=== PATIENT | male | born 1950 | race Caucasian/White ===

== ENCOUNTER 2024-02-16 12:22 | Emergency (ER) | payer MEDICARE, MEDICAID, SELFPAY ==
[2024-02-16 12:24] VITALS: PULSE 83; RESP 17; O2SAT 97; BMI 20.5
[2024-02-16 12:30] VITALS: BP 134/66; PULSE 75; RESP 18; TEMP 36.8; O2SAT 96
--- NOTE | 2024-02-16 12:30 | EKG_ITS ---
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
[2024-02-16 13:00] LABS: Basophils % (Auto) 1 % (0-2.5); Eosinophils # (Auto) 0.1 Thou/mm3 (0.0-0.5); Eosinophils % (Auto) 1 % (0-10); Hematocrit 39.5 % (41.0-53.0); Hemoglobin 13.8 g/dL (13.5-16.0); Immature Granulocytes % (Auto) 0 % (0-0); Immature Granulocytes Auto 0.01 Thou/mm3 (0.00-0.00); Lymphocytes # (Auto) 1.6 Thou/mm3 (1.0-4.8); Lymphocytes % (Auto) 32 % (10-50); Mean Corpuscular HGB Conc 34.9 g/dl (31.0-37.0); Mean Corpuscular Hemoglobin 32.5 pg (25.0-35.0); Mean Corpuscular Volume 93 fL (80-100); Monocytes # (Auto) 0.5 Thou/mm3 (0.0-0.8); Monocytes % (Auto) 10 % (0-12); Neutrophils # (Auto) 2.9 Thou/mm3 (1.8-7.7); Neutrophils % (Auto) 56 % (37-80); Nucleated Red Blood Cell % 0 /100 WBC (0); Platelet Count 170 Thou/mm3 (140-440); RDW Standard Deviation 40.6 fL (35.1-43.9); Red Blood Count 4.25 Miln/mm3 (4.50-5.90); White Blood Count 5.1 Thou/mm3 (3.8-10.6)
[2024-02-16 13:20] LABS: Alanine Aminotransferase 11 U/L (10-49); Albumin, Serum 4.1 gm/dL (3.4-4.8); Albumin/Globulin Ratio 1.6 (1.2-2.2); Alkaline Phosphatase 59 U/L (46-116); Anion Gap 11 (7-16); Aspartate Amino Transferase 12 U/L (0-34); BUN/Creatinine Ratio 17 Ratio (12-20); Bilirubin,Total 0.5 mg/dL (0.3-1.2); Blood Urea Nitrogen 12 mg/dL (9-23); Calcium 9.3 mg/dL (8.3-10.6); Calcium (Corrected) 9.3 mg/dL (8.5-10.1); Chloride 105 mMol/L (98-107); Creatinine (Component) 0.7 mg/dL (0.6-1.3); Estimated Creatinine Clearance 70.2 mL/min (>60); Globulin 2.6 gm/dL (2.3-3.5); Glucose 131 mg/dL (74-106); Osmolality,Calculated 279 (275-295); Potassium 3.4 mMol/L (3.4-5.1); Sodium 139 mMol/L (136-145); Total Protein 6.7 gm/dL (5.7-8.2); Troponin I < 0.002 ng/mL (0.0-0.045); eGFR > 60 See Note
--- NOTE | 2024-02-16 13:37 | XR_ITS ---
Examination: CT brain head without contrast. 2-D sagittal coronal reconstructions Date and time of exam:February 16, 2024 1519 hours INDICATIONS: Altered mental status today CTDI: vol (mGy):47.8 DLP: (mGycm):984 Technique: Multiple CT axial sections of the brain have been obtained, 5 mm slice thickness. Contrast has not been administered. 2-D sagittal, coronal reconstructions have been obtained Low dose protocols were performed. One or more of the following dose reduction techniques were used; automated exposure control, adjustment of the mA and/or KV according to patient size, use of iterative reconstruction technique. Findings: The patient's posterior cranial vault plate severely degrades image quality There is mild to moderate ventricular enlargement Encephalomalacia in the high left parietal lobe 26 mm Encephalomalacia in the right occipital lobe No gross hemorrhage IMPRESSION: The patient's posterior cranial vault plate severely degrades image quality Mild to moderate ventricular enlargement No gross hemorrhage or gross mass effect
--- NOTE | 2024-02-16 14:08 | PD.EDAMS ---
Altered Mental Status RME/HPI General Chief Complaint: Altered Mental Status Stated Complaint: AMS Time Seen by Provider: 02/16/24 14:04 Arrival date/time: 02/16/24 12:22 RME / HPI RME / HPI narrative: DR. JURADO MAIN ED EVALUATION: 73 year old male presents to the Emergency Department [facility] with complaint of altered mental status. History limited, no ROS from patient. Patient resides in an assisted living facility as he is developmentally delayed. Related Data Allergies Allergy/AdvReac Type Severity Reaction Status Date / Time No Known Allergies Allergy Verified 10/05/19 09:34 Review of Systems Review of Systems ROS Unobtainable: unobtainable due to mental status Past Medical History Social History SMOKING STATUS: Unknown if ever smoked ED Exam Narrative Physical exam: GENERAL APPEARANCE: awake, altered, well-developed, well-nourished, no acute distress VITALS: All vitals were reviewed and the pulse ox is 96% on room air, which is normal according to my interpretation. HEENT: Normocephalic, atraumatic; pupils equal, round, reactive to light; EOMI; mucous membranes pink, moist; oropharynx clear NECK: Supple LUNGS: CTABL; no wheezes, no rales, no rhonchi HEART: Regular rate, regular rhythm; normal S1, S2; no murmurs ABDOMEN: non distended; normal BS; soft, no tenderness, no guarding, no rebound; no masses, no organomegaly, no hernia BACK: no CVA tenderness EXTREMITIES: atraumatic; no edema NEUROLOGIC: unobtainable; PSYCHIATRIC: unobtainable SKIN: warm, dry, normal color; no rashes Course Course Course Narrative: 1800: Patient was signed out to Dr. Blanco. Past medical, surgical, social and family history reviewed. Vitals and home medications reviewed. Results and treatment plan discussed. They will assume the care of the patient at this time and will follow the patient. Quality Measures none Orders Category Date Time Status Bedside COVID-19 Antigen Test NOW Care 02/16/24 12:33 Active Bedside Influenza A&B Antigen Test NOW Care 02/16/24 12:33 Completed EKG (ED ONLY) *Do not use* NOW Care 02/16/24 12:[address] abdomen pelvis wo con Stat Exams 02/16/24 23:[address] head/brain wo con Stat Exams 02/16/24 13:37 Completed EKG (ED Only) Stat Exams 02/16/24 12:30 Draft CBC Stat Lab 02/16/24 12:44 Completed Comprehensive Metabolic Panel Stat Lab 02/16/24 12:44 Completed Troponin I Stat Lab 02/16/24 12:44 Completed Urinalysis Stat Lab 02/16/24 22:37 Completed Lidocaine Jelly 2% Urojet [Xylocaine Jelly 2% Urojet] Med 02/16/24 19:19 Discontinued See Dose Instructions TOP X1 ONE Sodium Chloride 0.9% 1000 ml [Ns] 1,000 ml Med 02/16/24 18:14 Discontinued IV 999 mls/hr Sodium Chloride 0.9% 1000 ml [Ns] 1,000 ml Med 02/16/24 22:22 Discontinued IV 999 mls/hr Vital Signs Vital signs: Vital Signs Temperature 98.2 F 02/16/24 12:30 Pulse Rate 75 02/16/24 12:30 Respiratory Rate 18 02/16/24 12:30 Blood Pressure 134/66 H 02/16/24 12:30 Pulse Oximetry (%) 96 02/16/24 12:30 Oxygen Delivery Method Room Air 02/16/24 12:30 Altered Mental Status MDM Narrative MDM Narrative:: I, Holley Coronado am scribing for and in the presence of Dr. Jurado. Patient data External records reviewed:: [facility] previous records (Reviewed last ED visit dated 09/27/19, discharged with the following: Laceration.) Clinical information provided by:: patient Social determinants that could affect healthcare access:: housing Patient has the following chronic illnesses:: Unknown. Previous visit chart: Patient resides in an assisted living facility as he is developmentally delayed. How is presenting disease/condition affected by chronic disease/condition?: uneffected by Evaluation data The following diagnostics were reviewed and interpreted by me:: lab results, radiology exam(s) and EKG tracing(s) (sinus rhythm, rate 64, no STEMI) Lab and/or radiology exams considered but not ordered:: none Interpretation Summary: Procedure(s): CT head/brain wo con Accession Number(s): [id number] cc: Jae Babb MD; NO PRIMARY/FAMILY,PHYSICIAN; Ethel Jurado MD~ Examination: CT brain head without contrast. 2-D sagittal coronal reconstructions Date and time of exam:February 16, 2024 1519 hours INDICATIONS: Altered mental status today CTDI: vol (mGy):47.8 DLP: (mGycm):984 Technique: Multiple CT axial sections of the brain have been obtained, 5 mm slice thickness. Contrast has not been administered. 2-D sagittal, coronal reconstructions have been obtained Low dose protocols were performed. One or more of the following dose reduction techniques were used; automated exposure control, adjustment of the mA and/or KV according to patient size, use of iterative reconstruction technique. Findings: The patient's posterior cranial vault plate severely degrades image quality There is mild to moderate ventricular enlargement Encephalomalacia in the high left parietal lobe 26 mm Encephalomalacia in the right occipital lobe No gross hemorrhage IMPRESSION: The patient's posterior cranial vault plate severely degrades image quality Mild to moderate ventricular enlargement No gross hemorrhage or gross mass effect Dictated By: Jae Babb MD Medications / Prescriptions Medications or Prescriptions considered but not ordered:: none Medication administrations:: Medication Administration History Discontinued Medications Sodium Chloride (Ns) 1,000 mls @ 999 mls/hr IV .Q1H1M ONE Stop: 02/16/24 19:14 Last Infusion: 02/16/24 22:57 Dose: Infused Documented By: ANA MARÍA Admin: 02/16/24 20:10 Dose: 999 mls/hr Documented By: ANA MARÍA Sodium Chloride (Ns) 1,000 mls @ 999 mls/hr IV .Q1H1M ONE Stop: 02/16/24 23:22 Last Infusion: 02/17/24 01:41 Dose: Infused Documented By: ANA MARÍA Admin: 02/16/24 22:57 Dose: 999 mls/hr Documented By: ANA MARÍA Lidocaine HCl (Lidocaine Jelly 2% (Urojet) 10 Ml Tube) 0 ml TOP X1 ONE Stop: 02/16/24 19:20 Last Admin: 02/16/24 20:07 Dose: 10 ml Documented By: ANA MARÍA see above if any Consultations Consultation(s) initiated? (list below): No Diagnosis Differential diagnosis altered mental status: altered mental status, dementia, hypoglycemia and subarachnoid hemorrhage Most likely diagnosis given after review of the tests above:: No official diagnoses at this time, still pending diagnostic tests. Patient signout to the warp tying machine knotter provider. Admission Indicated Admission indicated?: not indicated Explain why admission is indicated or not indicated:: No final disposition plan at this time, still pending diagnostic tests. Patient signout to the warp tying machine knotter provider. Admission Request Was there a request for admission?: No Disposition Plan Disposition Plan: other (specify) (Patient signout to the warp tying machine knotter provider.) Discharge Plan Prescriptions/Referrals Referrals: No Primary/Family,Physician [Primary Care Provider] - In 1 week Problem List Clinical Impression: Hematuria Patient/Caregiver Discharge Instructions Print Language: Afghan
[2024-02-16 14:27] VITALS: BP 139/94; PULSE 62; RESP 15; TEMP 36.4; O2SAT 100
--- NOTE | 2024-02-16 14:54 | PC.NURSE ---
unable to pass 14 faroese catheter to obtain urine sample.
[2024-02-16 16:20] VITALS: BP 125/91; PULSE 64; RESP 16; TEMP 36.7; O2SAT 97
--- NOTE | 2024-02-16 17:12 | PC.NURSE ---
Received report from Sherri PEDERSON and assumed care of patient.
[2024-02-16 19:37] VITALS: BP 173/90; PULSE 67; RESP 16; TEMP 36.9; O2SAT 99
[2024-02-16] MEDS: LIDOCAINE JELLY 2% (Urojet) 10 ML TUBE TOP (20:07)
[2024-02-16] MEDS: SODIUM CHLORIDE 0.9% 1000 ML 1,000 ML 999 ML IV ×2 (20:10→22:57)
--- NOTE | 2024-02-16 21:41 | EDNOTE_ITS ---
Emergency Room Addendum <Holleyearline Coronado - Last Filed: 02/16/24 22:19> Addendum Narrative: 1800: Care assumed from Dr. Jurado, the previous shift emergency physician. Past medical, surgical, social and family history reviewed. Vitals and home medications reviewed. I will assume the care of the patient at this time. Please refer to the emergency department record for history and examination from initial visit.? Physical exam by me shows patient under no acute distress at this time. <Lalitalashaun Childress - Last Filed: 02/17/24 05:34> Addendum Narrative: 1800: Care assumed from Dr. Jurado, the previous shift emergency physician. Past medical, surgical, social and family history reviewed. Vitals and home medications reviewed. I will assume the care of the patient at this time. Please refer to the emergency department record for history and examination from initial visit.? Physical exam by me shows patient under no acute distress at this time. Labs are normal. CT is unremarkable. Patient is stable to be discharged. RADIOLOGY RESULTS: Telerad Preliminary Report Draft Patient: RAEANN OCAMPO [facility]. Record#: [id number] Birthdate: 1950 Age/Sex: 73 / M Location: [facility] Attending Dr: Ordering Physician: Date of Service: Procedure(s): Accession Number(s): cc: ~ CT scan of the abdomen and pelvis without intravenous contrast (axial sections with sagittal and coronal reformats): February 17, 2024 at 0044 hours Clinical History: Hematuria rule out kidney stone. No prior study is available for comparison. Findings: The evaluation is limited due to the absence of intravenous contrast. There is a partly calcified nodule in the right middle lobe. Bibasilar dependent atelectasis is present. There is right middle lobe atelectasis. Small hypodense lesion is noted in the liver, too small to characterize. There is a 3 x 2.5 cm ill defined hypodense mass in the distal body/tail of the pancreas with mild peripancreatic fat stranding (axial image 62/259). The gallbladder, spleen, kidneys and adrenals are unremarkable on this noncontrast study No evidence of bowel dilatation. There is wall thickening of the stomach with perigastric collaterals. Moderate amount of fecal material is present in the colon. The appendix is within normal limits. There is no adenopathy. The urinary bladder wall is mildly thickened, which may represent cystitis. A small amount of free fluid is seen in the abdomen. There is no free air. The aorta and its branches demonstrate atheromatous calcification without evidence of aneurysm. There is age indeterminate anterior wedge compression deformity of L1 vertebra. Moderate degenerative changes are identified in the visualized spine. Impression: Limited evaluation as described. No evidence of renal/ureteric calculus or hydroureteronephrosis. Possible cystitis. Recommend clinical and laboratory correlation. Ill defined hypodense mass in the distal body/tail of the pancreas, the pos sibility of neoplasm cannot be excluded. Underlying pancreatitis cannot be excluded. Recommend further evaluation with intravenous contrast. Wall thickening of the stomach with perigastric collaterals, which may represent gastritis. Constipation. Other findings as described above. Report Electronically Signed By: Emmett Scott 02/17/2024 3:18:37 AM [EST]
[2024-02-16 22:44] LABS: Collection Type, Urine Clean Catch; Squamous Epithelial Cell,Urine 0 /hpf (0-5)
[2024-02-16 22:49] LABS: Bilirubin,Urine Negative (Negative); Blood,Urine 3+ (Negative); Clarity,Urine Clear (Clear/Hazy); Color,Urine Yellow (Lt Yel-Yel); Glucose, Urine Negative (Negative); Ketones,Urine 1+ (Negative); Leukocyte Esterase,Urine Negative (Negative); Nitrite,Urine Negative (Negative); Protein,Urine Trace (Neg - Trace); RBC,Urine 683 /hpf (0-3); Specific Gravity,Urine 1.026 (1.001-1.035); WBC,Urine 8 /hpf (0-5)
--- NOTE | 2024-02-16 23:25 | XR_ITS ---
Examination: CT abdomen and pelvis without contrast. Coronal 3-D reconstructions. Sagittal 2-D reconstructions. Date and time of exam:February 17, 2024 0044 hours INDICATIONS: Onset hematuria today CTDI: vol (mGy): 7.04 DLP: (mGycm): 379 Technique: Axial images of the abdomen have been obtained, 3 mm slice thickness Intravenous contrast material has not been administered. Low dose protocols were performed. One or more of the following dose reduction techniques were used; automated exposure control, adjustment of the mA and/or KV according to patient size, use of iterative reconstruction technique. Findings: No focal liver or splenic lesions Minimal fluid subcapsular to the spleen Suspicious for tiny gallstones Subtle low density in the body of the pancreas, axial image 58, measuring 25 mm No renal or ureteral calculi, no hydronephrosis Aorta normal size No bowel obstruction Normal appendix Urinary bladder wall thickening Air distended rectum Fat-containing right inguinal hernia Severe osteopenia Chronic wedging L1, significant degenerative disc disease L4-L5, L5-S1 IMPRESSION: Recommend MRI abdomen pancreas follow-up pre and postcontrast, as well as MRCP to exclude 25 mm pancreatic mass, differential would include pancreatic carcinoma
[2024-02-17 03:10] VITALS: BP 145/82; PULSE 76; RESP 18; TEMP 37.1; O2SAT 97
--- NOTE | 2024-02-17 03:19 | PRELIM_ITS ---
CT scan of the abdomen and pelvis without intravenous contrast (axial sections with sagittal and bety nal reformats): February 17, 2024 at 0044 hoursClinical History: Hematuria rule out kidney stone.No pr ior study is available for comparison.Findings:The evaluation is limited due to the absence of intrav enous contrast.There is a partly calcified nodule in the right middle lobe. Bibasilar dependent atele ctasis is present. There is right middle lobe atelectasis.Small hypodense lesion is noted in the rony er, too small to characterize. There is a 3 x 2.5 cm ill defined hypodense mass in the distal body/ta il of the pancreas with mild peripancreatic fat stranding (axial image 62/259). The gallbladder, sple en, kidneys and adrenals are unremarkable on this noncontrast studyNo evidence of bowel dilatation. T here is wall thickening of the stomach with perigastric collaterals. Moderate amount of fecal materia l is present in the colon. The appendix is within normal limits. There is no adenopathy.The urinary b ladder wall is mildly thickened, which may represent cystitis. A small amount of free fluid is seen i n the abdomen. There is no free air. The aorta and its branches demonstrate atheromatous calcificatio n without evidence of aneurysm.There is age indeterminate anterior wedge compression deformity of L1 vertebra. Moderate degenerative changes are identified in the visualized spine.Impression:Limited va luation as described.No evidence of renal/ureteric calculus or hydroureteronephrosis.Possible cystiti s. Recommend clinical and laboratory correlation.Ill defined hypodense mass in the distal body/tail o f the pancreas, the possibility of neoplasm cannot be excluded. Underlying pancreatitis cannot be exc luded. Recommend further evaluation with intravenous contrast.Wall thickening of the stomach with per igastric collaterals, which may represent gastritis.Constipation.Other findings as described above. R eport Electronically Signed By: Emmett Scott 02/17/2024 3:18:37 AM [EST]
[2024-02-17 05:43] VITALS: BP 158/92; PULSE 70; RESP 16; TEMP 36.7; O2SAT 98
== END 2024-02-17 05:44 | disposition home or self-care (01) ==
PROVIDERS: Emergency Medicine; Emergency Provider Emergency Medicine
DX: R31.9 Hematuria, unspecified (principal); G93.89 Other specified disorders of brain; K59.00 Constipation, unspecified
CPT/HCPCS: 36415; 70450; 74176; 80053; 81001; 84484; 85025; 87400; 87811; 93005; 96360; 96361; 99284; J7030

== ENCOUNTER 2024-07-11 11:43 | Inpatient (IN) | payer MEDICARE, MEDICAID, SELFPAY ==
[2024-07-11 11:52] VITALS: BP 101/60; PULSE 91; RESP 22; TEMP 38.1; O2SAT 95
--- NOTE | 2024-07-11 12:04 | PD.EDADULT ---
ED General RME/HPI General Chief complaint: Shortness of Breath/Dyspnea Stated complaint: SOB Time Seen by Provider: 07/11/24 11:54 Arrival date/time: 07/11/24 11:43 Limitations: altered mental status RME / HPI RME / HPI narrative: 73-year-old nonverbal male, with a past medical history of developmentally disabled, seizure disorder, and cerebral palsy, presents via EMS to the ED from his [place] [facility] with a complaint of shortness of breath with shallow respirations and rhonchi. Per EMS, staff indicates there has been no fever. Initially his oxygen saturation was 88% on room air. EMS initiated oxygen at 6 L via nasal cannula which brought his oxygen saturation up to 98-99%. Related Data Allergies Allergy/AdvReac Type Severity Reaction Status Date / Time No Known Allergies Allergy Verified 10/05/19 09:34 Review of Systems Review of Systems Systems Reviewed: All systems reviewed, normal except as documented Past Medical History Past Medical History NEUROLOGIC: Positive Seizures, Cerebral Palsy and Head Trauma CARDIAC: Negative Congestive Heart Failure RESPIRATORY: Negative Chronic Obstructive Pulmonary Disease (COPD) GENITOURINARY: Negative Renal Disease ENT: Positive Head Trauma ENDOCRINE: Negative Diabetes Mellitus Type 1 or Diabetes Mellitus Type 2 HEMATOLOGIC: Negative Sickle Cell Disease Social History SMOKING STATUS: Unknown if ever smoked ED Exam Narrative Physical exam: Alert, nonverbal, developmentally delayed 73-year-old male, mild acute respiratory distress noted. Diminished breath sounds at bases, rhonchi is noted to all [place]. Cardiovascular regular rate and rhythm. Extremities are contracted. General Limitations: Present altered mental status General appearance: Present in no apparent distress Head Head exam: Present atraumatic and normocephalic Eye Eye exam: Absent scleral icterus or conjunctival injection ENT ENT exam: Present other (Mucous membranes are slightly dry) Neck Neck exam: Present trachea midline; Absent lymphadenopathy Chest Chest inspection: Present normal inspection Respiratory Respiratory exam: Present respiratory distress and other (Diminished breath sounds at the bases, rhonchi noted bilaterally.); Absent normal lung sounds bilaterally or wheezes Cardiovascular Cardiovascular exam: Present regular rate and normal rhythm Abdominal Exam Abdominal exam: Present soft Course Course Course Narrative: 73-year-old nonverbal male, with a past medical history of developmentally disabled, seizure disorder, and cerebral palsy, presents via EMS to the ED from his [place] [facility] with a complaint of shortness of breath with shallow respirations and rhonchi. Per EMS, staff indicates there has been no fever. Initially his oxygen saturation was 88% on room air. EMS initiated oxygen at 6 L via nasal cannula which brought his oxygen saturation up to 98-99%. Alert, nonverbal, developmentally delayed 73-year-old male, mild acute respiratory distress noted. Diminished breath sounds at bases, rhonchi is noted to all bur[place]on. Cardiovascular regular rate and rhythm. Extremities are contracted. Labs reveal a white count of 18.4, decreased H&H of 18.8/33.8 with normal platelets, ANC is elevated at 15.4. Lactic acid is normal at 1.2 and LDH is normal at 176. Procalcitonin is normal at 0.15. Coags are essentially normal with the exception of a mildly elevated PT 13.8. Troponin is normal at less than 0.002. BNP is normal at 79. ABG is abnormal with a pH of 7.49, PCO2 of 30, PO2 of 59 on 2 L via nasal cannula. CMP abnormalities include a creatinine of 0.5, glucose 100, osmolality 272, lactic 1.2, magnesium 1.8, alk phos 189 and albumin 3.2. Otherwise normal chemistry panel. Urinalysis reveals hazy dark yellow urine with a specific gravity of 1.032 with 1+ protein, 1+ ketones, negative leukocyte esterase, negative nitrates, 8 RBC, 8 WBCs, 1 squamous epithelial and no bacteria. COVID and influenza A/B swabs are negative. Discussed request for admission with resident service who agrees to come down and check out the patient for admission. CT abdomen and pelvis with contrast ordered and pending, per request by resident for admission. Quality Measures Current suspected stage: ruled out Reason for ruling out sepsis: Lactic acid 1.2, procalcitonin 0.15 no tachycardia noted. Possible source: pulmonary Blood cultures ordered: yes Antibiotic ordered: Yes Pertinent labs: 07/11/24 12:31 Lactic Acid 1.2 mMol/L (0.4-2.0) Procalcitonin 0.15 ng/ml (0.0-0.49) sepsis Orders Category Date Time Status Bedside Influenza A&B Antigen Test NOW Care 07/11/24 12:07 Completed COVID-19 Screening Questionnaire NOW Care 07/11/24 19:[address] Screening NOW Care 07/11/24 17:[address] Screening NOW Care 07/11/24 21:[address] Screening X1 Care 07/11/24 17:34 Completed EKG (ED ONLY) *Do not use* NOW Care 07/11/24 12:10 Completed IV [Insert IV] NOW Care 07/11/24 19:[address] chest abdomen pelvis w Stat Exams 07/11/24 21:[address] head/brain wo con Stat Exams 07/11/24 21:37 Completed EKG (ED Only) Stat Exams 07/11/24 12:07 Draft XR chest 1V portable Stat Exams 07/11/24 12:13 Completed ABG [Arterial Blood Gas] Stat Lab 07/11/24 12:50 Completed B-Type Natriuretic Peptide Stat Lab 07/11/24 12:31 Completed Blood Culture (Lab) Stat Lab 07/11/24 12:27 Received CBC Stat Lab 07/11/24 12:31 Completed CMP [Comprehensive Metabolic Panel] Stat Lab 07/11/24 12:31 Completed COVID-19 Antigen (In-House) Routine Lab 07/11/24 12:32 Completed COVID-19 Antigen (In-House) Stat Lab 07/11/24 19:44 Completed LDH (Lactate Dehydrogenase) Stat Lab 07/11/24 12:31 Completed Lactic Acid [Lactate (Lactic Acid)] Stat Lab 07/11/24 12:31 Completed Magnesium Stat Lab 07/11/24 12:31 Completed Partial Thromboplastin Time Stat Lab 07/11/24 12:31 Completed Procalcitonin Stat Lab 07/11/24 12:31 Completed Prothrombin Time with INR Stat Lab 07/11/24 12:31 Completed Troponin I Stat Lab 07/11/24 12:31 Completed Urinalysis Stat Lab 07/11/24 14:40 Completed Acetaminophen Supp [Tylenol Supp] Med 07/11/24 13:36 Discontinued 650 mg IN X1 ONE Albuterol/Ipratr Rt Mariana [Duoneb Rt Mariana] Med 07/11/24 12:07 Discontinued 3 ml INH X1 ONE Vital Signs Vital signs: Vital Signs Temperature 100.5 F H 07/11/24 11:52 Pulse Rate 91 07/11/24 11:52 Respiratory Rate 22 H 07/11/24 11:52 Blood Pressure 101/60 07/11/24 11:52 Pulse Oximetry (%) 95 07/11/24 11:52 Oxygen Delivery Method Nasal Cannula 07/11/24 11:52 Oxygen Flow Rate 6 07/11/24 11:52 Discharge Plan Plan Patient Disposition: Admit Acute Care w/in Hospital Discharge Disposition comment: Stable Prescriptions/Referrals Referrals: Lizzette Antunez DO [Primary Care Provider] - In 1 week Problem List Clinical Impression: Congestive heart failure, Community acquired pneumonia, Multiple pulmonary nodules, Pancreatic mass Patient/Caregiver Discharge Instructions Print Language: Yakut Stand Alone Forms: Irene Award Info., Patient Portal Info Letter PA/BACK SEWER Supervising Physician PA/TERENCE Supervising Physician: Dr. Aliya ABAD Narrative MDM hospital course: 73-year-old nonverbal male, with a past medical history of developmentally disabled, seizure disorder, and cerebral palsy, presents via EMS to the ED from his [place] [facility] with a complaint of shortness of breath with shallow respirations and rhonchi. Per EMS, staff indicates there has been no fever. Initially his oxygen saturation was 88% on room air. EMS initiated oxygen at 6 L via nasal cannula which brought his oxygen saturation up to 98-99%. Alert, nonverbal, developmentally delayed 73-year-old male, mild acute respiratory distress noted. Diminished breath sounds at bases, rhonchi is noted to all bur[place]. Cardiovascular regular rate and rhythm. Extremities are contracted. Labs reveal a white count of 18.4, decreased H&H of 18.8/33.8 with normal platelets, ANC is elevated at 15.4. Lactic acid is normal at 1.2 and LDH is normal at 176. Procalcitonin is normal at 0.15. Coags are essentially normal with the exception of a mildly elevated PT 13.8. Troponin is normal at less than 0.002. BNP is normal at 79. ABG is abnormal with a pH of 7.49, PCO2 of 30, PO2 of 59 on 2 L via nasal cannula. CMP abnormalities include a creatinine of 0.5, glucose 100, osmolality 272, lactic 1.2, magnesium 1.8, alk phos 189 and albumin 3.2. Otherwise normal chemistry panel. Urinalysis reveals hazy dark yellow urine with a specific gravity of 1.032 with 1+ protein, 1+ ketones, negative leukocyte esterase, negative nitrates, 8 RBC, 8 WBCs, 1 squamous epithelial and no bacteria. COVID and influenza A/B swabs are negative. Discussed request for admission with resident service who agrees to come down and check out the patient for admission, however would like CT of Abd/Pelvis for further evaluation. CT Abd/Pelvis ordered at 1734, however as of 2129, CT had not been performed. After discussion with Dr. Pisano, he recommends CT Chest/Abd/Pelvis as well as CT Brain. Cancelled original CT Abd/Pelvis and reordered the CTs to include Brain, Chest, Abdomen, and Pelvis. CT Brain: Findings: The patient's posterior cranial plate massively degrades scan image quality. The ventricles are moderately enlarged. The fourth ventricle is midline. No gross hemorrhage. IMPRESSION: The patient's posterior cranial plate massively degrades image quality. The ventricles are moderately enlarged. No gross hemorrhage or gross mass effect CT Chest/Abd/Pelvis: Findings: No thoracic aortic aneurysm dilatation. No pulmonary artery emboli on this non-CTA study. Mild enlargement in cardiac contour. Moderate CHF with pulmonary vascular congestion and perihilar edema. Multiple soft bilateral pulmonary nodules ranging in size up to 10 mm. Pneumonia at the lung bases with mild right [id number] left pleural effusion. Liver nodular in contour with multiple poorly defined liver lesions. Spleen is not enlarged. Moderate ascites. Large necrotic mass involving the pancreas, AP dimension and at least 4 cm mediolateral dimension at least 6.4 cm. No hydronephrosis. Paracaval / periaortic subcentimeter lymph nodes. No bowel obstruction. Mild thickening of the urinary bladder wall with 6 mm calculus and 3 mm calculusin the bladder. 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 Orlando who agrees to see patient for admission. Clinical Information Provided by EMS Medical Records Reviewed halfway Meds/Rx Considered, not Ordered None Labs/Rad/Tests considered, not Ordered None Chronic Illness/Social Conditions which may negatively complicate care or outcome(s)-explain: Cognitively impaired, Developmentally delayed and halfway/debilitated Lab Interpretation Labs: interpreted by la Lab(s) interpretation(s): Labs reveal a white count of 18.4, decreased H&H of 18.8/33.8 with normal platelets, ANC is elevated at 15.4. Lactic acid is normal at 1.2 and LDH is normal at 176. Procalcitonin is normal at 0.15. Coags are essentially normal with the exception of a mildly elevated PT 13.8. Troponin is normal at less than 0.002. BNP is normal at 79. ABG is abnormal with a pH of 7.49, PCO2 of 30, PO2 of 59 on 2 L via nasal cannula. CMP abnormalities include a creatinine of 0.5, glucose 100, osmolality 272, lactic 1.2, magnesium 1.8, alk phos 189 and albumin 3.2. Otherwise normal chemistry panel. Urinalysis reveals hazy dark yellow urine with a specific gravity of 1.032 with 1+ protein, 1+ ketones, negative leukocyte esterase, negative nitrates, 8 RBC, 8 WBCs, 1 squamous epithelial and no bacteria. COVID and influenza A/B swabs are negative. Imaging Radiology reports / interpretation(s): CT Brain: Findings: The patient's posterior cranial plate massively degrades scan image quality. The ventricles are moderately enlarged. The fourth ventricle is midline. No gross hemorrhage. IMPRESSION: The patient's posterior cranial plate massively degrades image quality. The ventricles are moderately enlarged. No gross hemorrhage or gross mass effect CT Chest/Abd/Pelvis: Findings: No thoracic aortic aneurysm dilatation. No pulmonary artery emboli on this non-CTA study. Mild enlargement in cardiac contour. Moderate CHF with pulmonary vascular congestion and perihilar edema. Multiple soft bilateral pulmonary nodules ranging in size up to 10 mm. Pneumonia at the lung bases with mild right upgi-ow-[id number] left pleural effusion. Liver nodular in contour with multiple poorly defined liver lesions. Spleen is not enlarged. Moderate ascites. Large necrotic mass involving the pancreas, AP dimension and at least 4 cm mediolateral dimension at least 6.4 cm. No hydronephrosis. Paracaval / periaortic subcentimeter lymph nodes. No bowel obstruction. Mild thickening of the urinary bladder wall with 6 mm calculus and 3 mm calculusin the bladder. 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 Medication Administration(s) Medication Administration History Discontinued Medications Acetaminophen (Acetaminophen Supp 650 Mg Supp) 650 mg IN X1 ONE Stop: 07/11/24 13:37 Last Admin: 07/11/24 14:39 Dose: Not Given Documented By: SURESH Non-Admin Reason: Cancelled by Provider Albuterol/Ipratropium (Albuterol/Ipratropium (Duoneb) Rt Mariana 3 Ml Nebu) 3 ml INH X1 ONE Stop: 07/11/24 12:08 Last Admin: 07/11/24 12:51 Dose: 3 ml Documented By: DAVID Duoneb, Tylenol 650mg IN, Rocephin 1Gm IV, Zithromax 500mg IV Diagnosis Differential diagnosis: Pneumonia, CHF, Sepsis, Pyelonephritis, Most likely dx, and/or detailed dx discussion: CHF, Pneumonia, Pancreatic Mass, Pulmonary Nodules Dispositon Disposition: Admit (Discussed with resident service for admission. Agrees to take a look at the patient. Wants CT abdomen pelvis.)
--- NOTE | 2024-07-11 12:07 | EKG_ITS ---
[facility] Test Date: 2024-07-11 Pat Name: RAEANN OCAMPO Department: Room: - Gender: Male Office Admin: : [id number] Requested By: Keyla May Order Number: [id number] Reading MD: Keyla May Measurements Intervals [place] Rate: 87 P: 39 AR: 154 QRS: 22 QRSD: 70 T: 90 QT: 362 QTc: 436 Interpretive Statements SINUS RHYTHM POSSIBLE LEFT ATRIAL ENLARGEMENT [-0.1mV P-WAVE IN V1/V2] SEPTAL MYOCARDIAL INFARCTION , PROBABLY RECENT [40+ ms Q WAVE IN V1/V2] ACUTE RI Compared to ECG 02/16/2024 13:06:47 Myocardial infarct finding now present /store/S0/[id number].pdf
--- NOTE | 2024-07-11 12:13 | XR_ITS ---
Examination: AP chest single view Technique one AP portable upright chest single view Date and time: July 11, 2024 1220 hours INDICATIONS: Shortness of breath today. FINDINGS: Mild prominence left ventricle Opacity in both lungs with vascular congestion IMPRESSION: Ekut-ml-[id number] heart failure Consider superimposed bilateral pneumonia, clinical correlation advised
[2024-07-11 12:38] LABS: Lactate (Lactic Acid) 1.2 mMol/L (0.4-2.0)
[2024-07-11 12:40] LABS: Basophils # (Auto) 0.1 Thou/mm3 (0.0-0.2); Basophils % (Auto) 0 % (0-2.5); Eosinophils # (Auto) 0.1 Thou/mm3 (0.0-0.5); Eosinophils % (Auto) 0 % (0-10); Hematocrit 33.8 % (41.0-53.0); Hemoglobin 11.8 g/dL (13.5-16.0); Immature Granulocytes % (Auto) 0 % (0-0); Immature Granulocytes Auto 0.08 Thou/mm3 (0.00-0.00); Lymphocytes # (Auto) 0.8 Thou/mm3 (1.0-4.8); Lymphocytes % (Auto) 5 % (10-50); Mean Corpuscular HGB Conc 34.9 g/dl (31.0-37.0); Mean Corpuscular Hemoglobin 31.7 pg (25.0-35.0); Mean Corpuscular Volume 91 fL (80-100); Monocytes % (Auto) 11 % (0-12); Neutrophils # (Auto) 15.4 Thou/mm3 (1.8-7.7); Neutrophils % (Auto) 84 % (37-80); Nucleated Red Blood Cell % 0 /100 WBC (0); Platelet Count 160 Thou/mm3 (140-440); Red Blood Count 3.72 Miln/mm3 (4.50-5.90); White Blood Count 18.4 Thou/mm3 (3.8-10.6)
[2024-07-11 12:43] VITALS: O2SAT 88
[2024-07-11] MEDS: ALBUTEROL/IPRATROPIUM (Duoneb) RT SOL 3 ML NEBU INH (12:51)
[2024-07-11 12:56] VITALS: PULSE 88; RESP 26; O2SAT 98
[2024-07-11 12:56] LABS: Base Excess 0 (-3-3); HCO3 23 mEq/L (20-26); Inspired O2, VO2 Liters 2 L/min; O2 Saturation 92 % (91-98); PCO2 30 mmHg (32.0-48.0); pH, Arterial 7.49 (7.35-7.45)
[2024-07-11 12:58] LABS: Allen Test Performed/OK; PO2 59 mmHg (83-108); Puncture Site Left Radial
[2024-07-11 13:01] LABS: INR 1.3 (0.9-1.3); Partial Thromboplastin Time 29.5 Seconds (22.0-36.0); Prothrombin Time 13.8 Seconds (9.0-12.2)
[2024-07-11 13:09] LABS: Alanine Aminotransferase 20 U/L (10-49); Albumin, Serum 3.2 gm/dL (3.4-4.8); Albumin/Globulin Ratio 1.2 (1.2-2.2); Alkaline Phosphatase 189 U/L (46-116); Anion Gap 9 (7-16); Aspartate Amino Transferase 27 U/L (0-34); BUN/Creatinine Ratio 26 Ratio (12-20); Bilirubin,Total 0.7 mg/dL (0.3-1.2); Blood Urea Nitrogen 13 mg/dL (9-23); Calcium 8.7 mg/dL (8.3-10.6); Calcium (Corrected) 9.3 mg/dL (8.5-10.1); Carbon Dioxide 24.2 mMol/L (20.0-31.0); Chloride 103 mMol/L (98-107); Creatinine (Component) 0.5 mg/dL (0.6-1.3); Globulin 2.7 gm/dL (2.3-3.5); Glucose 100 mg/dL (74-106); LDH (Lactate Dehydrogenase) 176 U/L (120-246); Magnesium 1.8 mg/dL (1.6-2.6); Osmolality,Calculated 272 (275-295); Potassium 4.4 mMol/L (3.4-5.1); Procalcitonin 0.15 ng/ml (0.0-0.49); Sodium 136 mMol/L (136-145); Total Protein 5.9 gm/dL (5.7-8.2); Troponin I < 0.002 ng/mL (0.0-0.045); eGFR > 60 See Note
[2024-07-11 13:18] LABS: COVID-19 Antigen (In-House) Negative (Negative)
[2024-07-11 13:19] LABS: B-Type Natriuretic Peptide 79 pg/mL (0-100)
[2024-07-11 14:42] VITALS: BP 145/75; PULSE 85; RESP 27; TEMP 37.6; O2SAT 97
[2024-07-11 14:54] LABS: Collection Type, Urine Clean Catch
[2024-07-11 15:15] LABS: Bilirubin,Urine Negative (Negative); Blood,Urine Negative (Negative); Color,Urine Drk-Yellow (Lt Yel-Yel); Glucose, Urine Negative (Negative); Hyaline Casts,Urine 1 /hpf (0-1); Ketones,Urine 1+ (Negative); Leukocyte Esterase,Urine Negative (Negative); Nitrite,Urine Negative (Negative); Protein,Urine 1+ (Neg - Trace); RBC,Urine 8 /hpf (0-3); Specific Gravity,Urine 1.032 (1.001-1.035); Squamous Epithelial Cell,Urine 1 /hpf (0-5); Urobilinogen,Urine OVER mg/dL (0.0-1.0); WBC,Urine 8 /hpf (0-5)
[2024-07-11 15:42] LABS: Clarity,Urine Hazy (Clear/Hazy)
[2024-07-11 16:30] VITALS: BP 141/80; PULSE 85; RESP 20; TEMP 36.7; O2SAT 99
--- NOTE | 2024-07-11 18:02 | PD.RESEVENT ---
Documentation for date of: 07/11/24 Event Note Event Note: Received call from ED for Mr Trevino in ED5. Patient not at baseline, obtunded and minimally responsive. CXR consistent with diffuse pulmonary edema, no consolidation noted. WBC >18, UA clean, no other source thus far. Requested ED for CT abdomen/pelvis. Will sign out to [facility] team re: possible admission AFTER Ct abdo/pelvis. ED also requested to call back for admission once CT is back. Plan of care discussed with attending, - Josiah Monge M.D. PGY2 Disclaimer: Minor errors in music adapter may be present as this note was dictated using voice recognition software.
[2024-07-11 18:42] VITALS: BP 161/88; PULSE 83; RESP 24; TEMP 37.4; O2SAT 98
--- NOTE | 2024-07-11 19:30 | PC.NURSE ---
Sheetfed Press Operator assumes care of patient at this time, pt is non verbal at this time with resident care supervisor at bedside no s/s of pain noted, pt noted to be on 5L/min NC and tolerating well. Bed in low position and locked with side rails up x 2
[2024-07-11 20:15] LABS: COVID-19 Antigen (In-House) Negative (Negative)
--- NOTE | 2024-07-11 20:30 | PC.NURSE ---
pressure ulcer noted to Right heel, waffle boots applied, pt reposition at this time as well
--- NOTE | 2024-07-11 21:20 | XR_ITS ---
Examination: CT chest with intravenous contrast CT abdomen with intravenous contrast CT pelvis with intravenous contrast 2-D coronal and sagittal reconstructions Time of exam: July 11, 2024 2158 hours INDICATIONS: Sepsis hypoxia today CTDI: vol (mGy) : 7.13 DLP: (mGycm): 523 Technique: Multiple axial images of the chest, abdomen and pelvis with intravenous contrast, 3.0 mm slice thickness. Images obtained post intravenous injection Isovue 370 60 cc. 2-D sagittal and coronal reconstructions. Low dose protocols were performed. One or more of the following dose reduction techniques were used; automated exposure control, adjustment of the mA and/or KV according to patient size, use of iterative reconstruction technique. Findings: No thoracic aortic aneurysm dilatation No pulmonary artery emboli on this non-CTA study Mild enlargement in cardiac contour Moderate CHF with pulmonary vascular congestion and perihilar edema Multiple soft bilateral pulmonary nodules ranging in size up to 10 mm Pneumonia at the lung bases with mild right zcao-vv-edmcqwtv left pleural effusion Liver nodular in contour with multiple poorly defined liver lesions Spleen is not enlarged Moderate ascites Large necrotic mass involving the pancreas, AP dimension and at least 4 cm mediolateral dimension at least 6.4 cm No hydronephrosis Paracaval / periaortic subcentimeter lymph nodes No bowel obstruction Mild thickening of the urinary bladder wall with 6 mm calculus and 3 mm calculus in the bladder 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
--- NOTE | 2024-07-11 21:37 | XR_ITS ---
Examination: CT brain head without contrast. 2-D sagittal coronal reconstructions Date and time of exam:July 11, 2024 2155 hours INDICATIONS: Altered mental status today CTDI: vol (mGy):49.4 DLP: (mGycm):919 Technique: Multiple CT axial sections of the brain have been obtained, 5 mm slice thickness. Contrast has not been administered. 2-D sagittal, coronal reconstructions have been obtained Low dose protocols were performed. One or more of the following dose reduction techniques were used; automated exposure control, adjustment of the mA and/or KV according to patient size, use of iterative reconstruction technique. Findings: Again, the patient's posterior cranial plate massively degrades scan image quality The ventricles are moderately enlarged The fourth ventricle is midline No gross hemorrhage IMPRESSION: The patient's posterior cranial plate massively degrades image quality The ventricles are moderately enlarged No gross hemorrhage or gross mass effect
--- NOTE | 2024-07-11 22:30 | PC.NURSE ---
pt reposition at this time, waffle boots remain in place, bed in low position and locked with side rails up x 2, pt remains on 5L/min NC and tolerating well, care remains at bedside. No s/s of pain or acute distress noted
[2024-07-12] VITALS (12 sets, daily range): BP systolic 139–191; BP diastolic 71–100; PULSE 78–83; RESP 16–29; TEMP 36.3–36.9; O2SAT 90–98
--- NOTE | 2024-07-12 00:30 | PC.NURSE ---
No changes noted in pt condition from previous assessment. Pt reposition at this time, bed remains in low position and locked with side rails up x 2. cloth shrinking supervisor remains at bedside. No s/s of pain noted
--- NOTE | 2024-07-12 02:30 | PC.NURSE ---
Pt continues to rest with no s/s of pain or acute distress. Pt noted to have no changes in condition from previous assessment. Pt repositioned at this time
[2024-07-12] MEDS: cefTRIAXone/D5w 1gm IV premix 1 GM/50 ML BAG IV ×2 (02:55→20:34)
[2024-07-12] MEDS: AZITHROMYCIN INJ 500 MG in SODIUM CHLORIDE 0.9% 250 ML 250 ML 250 MG IV (02:55)
--- NOTE | 2024-07-12 02:57 | ESHP_ITS ---
Documentation for date of: 07/12/24 [facility] History of Present Illness Chief complaint: SOB History of present illness: Tramaine Trevino is 73 yr male with PMH of Cerebral palsy, smoker, failure to thrive, mentally delayed, history of seizure presenting to ED from facility due to shortness of breath. Per care provider at bedside, facility noticed change in breathing patterns with pulse ox measuring O2 saturations 86% on room air. EMS was called to facility and patient was placed on 6L oxymask which improved oxygenation to 98%. Caregiver at bedside provided additional history. She stated that in past 6 months there has been significant deterioration in the activities. Six months ago he was able to participate in activities, garden, feed himself, and active walking around. He slowly started regressing and becoming nonverbal. Has minimal communication now with yes or no answers at times. Per facility, he has been having runny nose, congestion, dry cough, decreased appetite. Diet is consisted of a pur?ed diet and medication given in the food. Last time patient had nutritional intake was yesterday breakfast. He has not had any medication since then as he is not eating. Patient follows PCP Dr. Mccollum in [place]. Last visit was earlier this month for assessment of patient's decline and undergo evaluation for hospice. Caregiver stated that PCP needs to contact Dr. Alejo (head of [facility]) in order to move forward with hospice. Process has been started 2 months ago with no definitive decision yet/word back. In ED, BP 101/60, HR 90, RR 22, low-grade temperature 100.1, saturating 94% on 5 L NC at bedside. Leukocytosis 18, hemoglobin stable 12. ABG reflects mild respiratory alkalosis with pH 7.49, CO2 30. CT chest/abdomen/pelvis consistent with bibasilar pneumonia, vascular congestion, pulmonary nodules with largest measuring 10 mm, necrotic pancreatic mass measuring ~4 cm x 6 cm. Patient to be admitted for management of AHRF 2/2 pneumonia. PMH: As noted above PSH: Ankle, cranial FamHx: Unknown Social: No history of alcohol use, history of smoking used to smoke about 1 pack/day for many years. Smoking up until 6 months ago. Meds: Baclofen 10 mg, cetirizine 10 mg, divalproex 500 mg twice daily, fluoxetine 40 mg, Seroquel 100 mg at bedtime. Medications to be mixed with pur?ed food. Allergies: NKDA Admission code status as full code. Day team to contact Dr. Alejo for confirmation ([phone]) on code status/speak about starting patient on hospice. Review of Systems Review of Systems ROS Unobtainable: unobtainable due to medical condition Exam Vital Signs Temp Pulse Resp BP Pulse Ox O2 Del Method O2 Flow Rate 99.4 F 83 24 H 161/88 H 98 Nasal Cannula 5 07/11/24 18:42 07/11/24 18:42 07/11/24 18:42 07/11/24 18:42 07/11/24 18:42 07/11/24 18:42 07/11/24 18:42 Narrative Exam General: Elderly male, poor eye contact, does not appear to be in acute distress HEENT: NCAT, No JVD noted. Mucosa dry. Pupils are equal and reactive to light bilaterally Cardiovascular: Normal S1 and S2. Regular rate and rhythm. Respiratory: Lungs are clear to auscultation bilaterally. No wheezing or crackles heard. On 6L NC Abdomen: Soft, nontender, not distended, normal bowel sounds. Skin: Warm to touch, dry, no rashes noted, right posterior foot ulcer Musculoskeletal: No gross injuries. Does not move lower extremities, no pitting edema, right hand contracture. Neuro: unable to assess Results: Labs 07/11/24 12:31 07/11/24 12:31 Labs: Short CBC 07/11/24 Range/Units 12:31 WBC 18.4 H (3.8-10.6) Thou/mm3 Hgb 11.8 L (13.5-16.0) g/dL Hct 33.8 L (41.0-53.0) % Plt Count 160 (140-440) Thou/mm3 BMP 07/11/24 12:31 Sodium 136 Potassium 4.4 Chloride 103 Carbon Dioxide 24.2 BUN 13 Creatinine 0.5 L Glucose 100 Calcium 8.7 Cardiac Enzymes 07/11/24 Range/Units 12:31 Troponin I < 0.002 (0.0-0.045) ng/mL Liver Function 07/11/24 Range/Units 12:31 Total Bilirubin 0.7 (0.3-1.2) mg/dL AST 27 (0-34) U/L ALT 20 (10-49) U/L Alkaline Phosphatase 189 H (46-116) U/L Albumin 3.2 L (3.4-4.8) gm/dL Urine 07/11/24 Range/Units 14:40 Urine Color Drk-Yellow A (Lt Yel-Yel) Urine Clarity Hazy (Clear/Hazy) Urine pH 6.0 (5.0-7.0) Ur Specific [place] 1.032 (1.001-1.035) Urine Protein 1+ A (Neg - Trace) Urine Glucose (UA) Negative (Negative) ABG Interpretation ABG results: 07/11/24 12:50 ABG pH 7.49 H ABG pCO2 30 L ABG pO2 59 L* ABG HCO3 23 ABG O2 Saturation 92 ABG Base Excess 0 Quality Measures Quality Measures sepsis Current suspected stage: ruled out Possible source: pulmonary Blood cultures ordered: yes Antibiotic ordered: Yes Advance care planning discussed with:: other Medications Home Medications and Allergies Allergies Allergy/AdvReac Type Severity Reaction Status Date / Time No Known Allergies Allergy Verified 10/05/19 09:34 Visit Medications Acetaminophen (Acetaminophen 325 Mg Tablet) 650 mg PO Q6H PRN PRN Reason: Fever >100.3 or pain 1-3 Stop: 08/11/24 02:47 Baclofen (Baclofen 10 Mg Tablet) 10 mg PO TID SARAH Stop: 08/11/24 05:59 Divalproex Sodium (Divalproex Sod 125 Mg Sprinkle) 500 mg PO BID SARAH Stop: 08/11/24 08:59 Enoxaparin Sodium (Enoxaparin Sod Inj 40 Mg/0.4 Ml Syringe) 40 mg SC QDAY SARAH Stop: 07/26/24 08:59 Ceftriaxone Sodium/Dextrose (Rocephin/D5w 1gm Iv Premix) 1 gm in 50 mls @ 100 mls/hr IV QDAY SARAH Stop: 07/19/24 02:52 Azithromycin 500 mg/ Sodium (Chloride) 250 mls @ 250 mls/hr IV X1 ONE Stop: 07/12/24 03:52 Ondansetron HCl (Ondansetron Inj 2 Mg/Ml Inj 2 Ml) 4 mg IVP Q6H PRN; Protocol PRN Reason: NAUSEA OR VOMITING Stop: 08/11/24 02:47 Quetiapine Fumarate (Quetiapine Fumarate 100 Mg Tablet) 100 mg PO HS SARAH Stop: 08/11/24 20:59 Sennosides (Senna Tablet) 1 tab PO QDAY PRN; Protocol PRN Reason: constipation Stop: 08/11/24 02:47 Discontinued Medications Acetaminophen (Acetaminophen Supp 650 Mg Supp) 650 mg WV X1 ONE Stop: 07/11/24 13:37 Last Admin: 07/11/24 14:39 Dose: Not Given Albuterol/Ipratropium (Albuterol/Ipratropium (Duoneb) Rt Mariana 3 Ml Nebu) 3 ml INH X1 ONE Stop: 07/11/24 12:08 Last Admin: 07/11/24 12:51 Dose: 3 ml Ceftriaxone Sodium/Dextrose (Rocephin/D5w 1gm Iv Premix) 1 gm in 50 mls @ 100 mls/hr IV X1 ONE Stop: 07/12/24 01:27 Last Admin: 07/12/24 02:55 Dose: 100 mls/hr Azithromycin 500 mg/ Sodium (Chloride) 250 mls @ 250 mls/hr IV X1 ONE Stop: 07/12/24 01:57 Last Admin: 07/12/24 02:55 Dose: 250 mls/hr Sodium Chloride (Sodium Chloride Rt 10% 15 Ml Nebu) 5 ml INH X1 ONE Stop: 07/12/24 02:49 Assessment & Plan Plan Tramaine Trevino is 73 yr male with PMH of Cerebral palsy, smoker, failure to thrive, mentally delayed, history of seizure presenting to ED from facility due to shortness of breath. Per care provider at bedside, facility noticed change in breathing patterns with pulse ox measuring O2 saturations 86% on room air. Patient to be admitted for management of AHRF 2/2 pneumonia. #AHRF 2/2 CAP Per care provider at bedside, facility noticed change in breathing patterns with pulse ox measuring O2 saturations 86% on room air. EMS was called to facility and patient was placed on 6L oxymask which improved oxygenation to 98%. In ED, BP 101/60, HR 90, RR 22, low-grade temperature 100.1, saturating 94% on 5 L NC at bedside. Leukocytosis 18. CT chest/abdomen/pelvis consistent with bibasilar pneumonia, vascular congestion, pulmonary nodules with largest measuring 10 mm. -IV ceftriaxone 1g daily -IV azithromycin 500mg daily -sputum cultures pending -blood cultures pending -duonebs PRN -continue to slowly titrate oxygen #Pulmonary nodules #Necrotic pancreatic mass Seen on CT imaging. -not pursuing full treatment at this time. Facility is waiting to hear about decision for hospice #Hx seizures Patient takes depakote 500mg BID mixed in pureed food. Has not had any dose since yesterday breakfast. -consider to switching to IV alternative #Hx Cerebral palsy #Failure to thrive -Continue seroquel 100mg HS -continue baclofen 10mg TID -fluoxetine 40mg dialy for aggression -puree diet with medication mixed in Health maintenance: Dispo: tele, IV abx for PNA FEN: pureed DVT prophylaxis: Lovenox CODE STATUS: Full code (refer to HPI for Code status check) The patient's management plan was discussed with my attending physician Dr. Paredes. Praveena Orlando, PGY-1 Attending Provider Attestation/Addendum I have examined the patient, reviewed labs and imaging findings, discussed the case with the resident(s), and reviewed entered orders. I agree with the plan of care as outlined in this note, with these additional summaries/recommendations: After examination of the patient and review of the clinical data, I feel that this patient needs admission to the hospital for further treatment and evaluation. Patient is a 73-year-old male with a medical history of developmental delay, seizure disorder, cerebral palsy, muscle spasms, allergies, and depression who presents to [facility] emergency department on 07/11/2024 with chief complaint of shortness of breath, hypoxia, and failure to thrive. Patient and product applications scientist seen at bedside. Law Office Receptionist reports patient is conserved with Dr. Alejo. They are currently in the process of pursuing hospice as patient has had a sharp decline in the last 6 months with now inability to ambulate, poor oral intake despite pur?ed diet, and now no longer talking. Per EMS patient was found to be hypoxic to 88% on room air. Patient diagnosed with acute hypoxic respiratory failure most likely secondary to bibasilar pneumonia seen on CT scan. Start IV antibiotics and wean oxygen as tolerated. Leukocytosis present and repeat hematology panel in AM. Blood cultures taken and follow-up results when available. CT scan also revealed large necrotic pancreatic mass with moderate malignant ascites, pulmonary nodules suspicious for pulmonary nodular metastatic disease, hepatocellular disease, and abdominal metastatic lymphadenopathy. After talking with product applications scientist it sounds like they would not want anything invasive done at this point and we will discuss with day team to reach out to Dr. Alejo as hospice appears appropriate. Patient was refusing food today by keeping his mouth closed and we will order speech therapy evaluation. N.p.o. for now. Continue home antiepileptics when able. Per product applications scientist patient has not had a seizure in many years. Awaiting home medication reconciliation. Law Office Receptionist updated on plan and agreement. All questions answered to satisfaction. Please see residents note for additional details and management. Dr. Reggie MD
--- NOTE | 2024-07-12 04:13 | PC.RT ---
sputum collected and sent to lab at this time.
--- NOTE | 2024-07-12 04:30 | PC.NURSE ---
No changes noted from pervious assessment, pt repositioned at this time, pt completed IV abx with s/s of reaction
--- NOTE | 2024-07-12 04:30 | PC.NURSE ---
Report given to floor nurseZeny RN
--- NOTE | 2024-07-12 05:52 | PC.NURSE ---
This nurse tried to get a hold of Maxx Del Toro, guardian of patient, two times via telephone to obtain information regarding the admission of patient but no answer. Voice mail left to Maxx asking for a call back.
[2024-07-12] MEDS: BACLOFEN 10 MG TABLET PO ×3 (06:21→21:04)
[2024-07-12 07:38] LABS: Basophils % (Auto) 0 % (0-2.5); Eosinophils % (Auto) 0 % (0-10); Hematocrit 38.2 % (41.0-53.0); Hemoglobin 12.7 g/dL (13.5-16.0); Immature Granulocytes % (Auto) 0 % (0-0); Immature Granulocytes Auto 0.04 Thou/mm3 (0.00-0.00); Lymphocytes % (Auto) 9 % (10-50); Mean Corpuscular HGB Conc 33.2 g/dl (31.0-37.0); Mean Corpuscular Hemoglobin 31.3 pg (25.0-35.0); Mean Corpuscular Volume 94 fL (80-100); Monocytes # (Auto) 0.7 Thou/mm3 (0.0-0.8); Monocytes % (Auto) 6 % (0-12); Neutrophils # (Auto) 9.7 Thou/mm3 (1.8-7.7); Neutrophils % (Auto) 84 % (37-80); Nucleated Red Blood Cell % 0 /100 WBC (0); Platelet Count 194 Thou/mm3 (140-440); RDW Standard Deviation 41.2 fL (35.1-43.9); Red Blood Count 4.06 Miln/mm3 (4.50-5.90); White Blood Count 11.5 Thou/mm3 (3.8-10.6)
[2024-07-12 07:55] LABS: Alanine Aminotransferase 17 U/L (10-49); Albumin, Serum 3.2 gm/dL (3.4-4.8); Albumin/Globulin Ratio 1.2 (1.2-2.2); Alkaline Phosphatase 203 U/L (46-116); Anion Gap 8 (7-16); Aspartate Amino Transferase 26 U/L (0-34); BUN/Creatinine Ratio 30 Ratio (12-20); Bilirubin,Total 0.6 mg/dL (0.3-1.2); Blood Urea Nitrogen 12 mg/dL (9-23); Calcium 8.8 mg/dL (8.3-10.6); Calcium (Corrected) 9.4 mg/dL (8.5-10.1); Carbon Dioxide 25.6 mMol/L (20.0-31.0); Chloride 103 mMol/L (98-107); Creatinine (Component) 0.4 mg/dL (0.6-1.3); Globulin 2.7 gm/dL (2.3-3.5); Glucose 93 mg/dL (74-106); Magnesium 1.7 mg/dL (1.6-2.6); Osmolality,Calculated 273 (275-295); Phosphorous 3.1 mg/dL (2.4-5.1); Potassium 4.1 mMol/L (3.4-5.1); Sodium 137 mMol/L (136-145); Total Protein 5.9 gm/dL (5.7-8.2); eGFR > 60 See Note
[2024-07-12] MEDS: FLUoxetine HCL 10 MG CAPSULE 40 MG PO (09:34)
[2024-07-12] MEDS: DIVALPROEX SOD 125 MG SPRINKLE 500 MG PO ×2 (09:34→21:04)
[2024-07-12] MEDS: ENOXAPARIN SOD INJ 40 MG/0.4 ML SYRINGE SC (09:35)
--- NOTE | 2024-07-12 09:38 | PC.SS ---
Initial assessment: patient is a 73-year old male who comes from elderly [facility]. Staff at the half-way assisted in providing information. Per staff, the patient has had significant decline in the last two months. Patient has been primarily bed bound as of the last month. The patient has a hospital bed and wheelchair at the half-way that he is transferred in. Patient's primary care provider is Lizzette Antunez. Patient discharge plan is to return back to elderly half-way. [facility] provides transportation services if needed. Patient's is aligned with services through [facility] and Dr. Sierra to be contacted for any medical decision making. Patient's half-waytest kitchen home economist is Maxx Del Toro and can be reached at or . D/c plan: return to half-way Next of kin: [facility] Dr. Alejo [facility] contact: Maxx Del Toro
--- NOTE | 2024-07-12 15:35 | PD.RESPRO ---
Documentation for date of: 07/12/24 Subjective Subjective Interval history: Patient seen and examined at bedside this a.m., no overnight events reported. Patient is nonverbal but spontaneously opening his eyes and tracking. BP was 160/90, pulse 83. WBC 11.5, Hb 12.7 and BMP within normal limits. Currently patient's saturating on room air and being treated with ceftriaxone and azithromycin IV for pneumonia. Attempted to contact his conservator Dr. Alejo at [phone] x [phone]. However was unsuccessful. Will attempt to reach out again tomorrow. Exam Vital Signs Temp Pulse Resp BP Pulse Ox O2 Del Method O2 Flow Rate 97.7 F 82 29 H 159/81 H 93 L Nasal Cannula 3 07/12/24 12:00 07/12/24 12:00 07/12/24 12:00 07/12/24 12:00 07/12/24 12:00 07/12/24 12:00 07/12/24 12:00 Narrative Exam General: Elderly male, poor eye contact, does not appear to be in acute distress HEENT: NCAT, No JVD noted. Mucosa dry. Pupils are equal and reactive to light bilaterally Cardiovascular: Normal S1 and S2. Regular rate and rhythm. Respiratory: Lungs are clear to auscultation bilaterally. No wheezing or crackles heard. On 3L NC Abdomen: Soft, nontender, not distended, normal bowel sounds. Skin: Warm to touch, dry, no rashes noted, right posterior foot ulcer Musculoskeletal: No gross injuries. Does not move lower extremities, no pitting edema, right hand contracture. Neuro: unable to assess Objective Labs 07/13/24 04:34 07/13/24 04:34 Labs: Laboratory Results - last 24 hr 07/11/24 07/11/24 07/12/24 14:40 19:44 07:25 WBC 11.5 H D RBC 4.06 L Hgb 12.7 L Hct 38.2 L MCV 94 MCH 31.3 MCHC 33.2 RDW Std Deviation 41.2 Plt Count 194 D Neut % (Auto) 84 H Lymph % (Auto) 9 L Grainger % (Auto) 6 Eos % (Auto) 0 Baso % (Auto) 0 Neut # (Auto) 9.7 H Lymph # (Auto) 1.0 Grainger # (Auto) 0.7 Eos # (Auto) 0.0 Baso # (Auto) 0.0 Immature Gran # (Auto) 0.04 H Absolute Nucleated RBC 0.00 Immature Gran % 0 Nucleated RBC % 0 Sodium 137 Potassium 4.1 Chloride 103 Carbon Dioxide 25.6 Anion Gap 8 BUN 12 Creatinine 0.4 L Estim Creat Clear Calc Not Performed. eGFR > 60 BUN/Creatinine Ratio 30 H Glucose 93 Calculated Osmolality 273 L Calcium 8.8 Corrected Calcium 9.4 Phosphorus 3.1 Magnesium 1.7 Total Bilirubin 0.6 AST 26 ALT 17 Alkaline Phosphatase 203 H Total Protein 5.9 Albumin 3.2 L Globulin 2.7 Albumin/Globulin Ratio 1.2 Ur Collection Type Clean Catch Urine Color Drk-Yellow A Urine Clarity Hazy Urine pH 6.0 Ur Specific [place] 1.032 Urine Protein 1+ A Urine Glucose (UA) Negative Urine Ketones 1+ A Urine Blood Negative Urine Nitrite Negative Urine Bilirubin Negative Urine Urobilinogen (Auto) OVER Ur Leukocyte Esterase Negative Urine RBC 8 H Urine WBC 8 H Ur Squamous Epith Cells 1 Urine Bacteria None Hyaline Casts 1 SARS-CoV-2 Ag (Rapid) Negative ABG Interpretation ABG results: 07/11/24 12:50 ABG pH 7.49 H ABG pCO2 30 L ABG pO2 59 L* ABG HCO3 23 ABG O2 Saturation 92 ABG Base Excess 0 Quality Measures Quality Measures sepsis Current suspected stage: ruled out Possible source: pulmonary Blood cultures ordered: yes Antibiotic ordered: Yes Advance care planning discussed with:: legal surragate Assessment & Plan Assessment Current Active Medications: Generic Name Dose Route Start Last Admin Trade Name Freq PRN Reason Stop Dose Admin Acetaminophen 650 mg 07/12/24 11:53 Acetaminophen Supp 650 Mg Supp WV 08/11/24 10:29 Q4HR PRN Mild Pain Or Fever > 101 Baclofen 10 mg 07/12/24 06:00 07/12/24 14:34 Baclofen 10 Mg Tablet PO 08/11/24 05:59 10 mg TID SARAH Administration Divalproex Sodium 500 mg 07/12/24 09:00 07/12/24 09:34 Divalproex Sod 125 Mg Sprinkle PO 08/11/24 08:59 500 mg BID SARAH Administration Enoxaparin Sodium 40 mg 07/12/24 09:00 07/12/24 09:35 Enoxaparin Sod Inj 40 Mg/0.4 Ml Syringe SC 07/26/24 08:59 40 mg QDAY SARAH Administration Fluoxetine HCl 40 mg 07/12/24 09:00 07/12/24 09:34 Fluoxetine Hcl 10 Mg Capsule PO 08/11/24 08:59 40 mg DAILY SARAH Administration Ceftriaxone Sodium/Dextrose 1 gm in 50 mls @ 100 mls/hr 07/12/24 21:00 Rocephin/D5w 1gm Iv Premix IV 07/19/24 20:59 QDAY@2100 SARAH Azithromycin 500 mg/ Sodium 250 mls @ 250 mls/hr 07/13/24 09:00 Chloride IV 07/20/24 08:59 QDAY SARAH Morphine Sulfate 2 mg 07/12/24 10:22 Morphine Sulf Inj 10 Mg/Ml Vial IVP 07/17/24 10:21 Q4HR PRN PAIN Ondansetron HCl 4 mg 07/12/24 02:48 Ondansetron Inj 2 Mg/Ml Inj 2 Ml IVP 08/11/24 02:47 Q6H PRN NAUSEA OR VOMITING Protocol Quetiapine Fumarate 100 mg 07/12/24 21:00 Quetiapine Fumarate 100 Mg Tablet PO 08/11/24 20:59 HS SARAH Sennosides 1 tab 07/12/24 02:48 Senna Tablet PO 08/11/24 02:47 QDAY PRN constipation Protocol Plan Tramaine Trevino is 73 yr male with PMH of Cerebral palsy, smoker, failure to thrive, mentally delayed, history of seizure presenting to ED from facility due to shortness of breath. Per care provider at bedside, facility noticed change in breathing patterns with pulse ox measuring O2 saturations 86% on room air. Patient to be admitted for management of AHRF 2/2 pneumonia. #AHRF 2/2 CAP Per care provider at bedside, facility noticed change in breathing patterns with pulse ox measuring O2 saturations 86% on room air. EMS was called to facility and patient was placed on 6L oxymask which improved oxygenation to 98%. In ED, BP 101/60, HR 90, RR 22, low-grade temperature 100.1, saturating 94% on 5 L NC at bedside. Leukocytosis 18. CT chest/abdomen/pelvis consistent with bibasilar pneumonia, vascular congestion, pulmonary nodules with largest measuring 10 mm. Patient came in and found to have 2 or more SIRS criteria and was evaluated for sepsis. However, based upon further work-up, sepsis was ruled out. Plan: - Continue ceftriaxone IV 1g daily started on [07/11? - Continue IV azithromycin 500mg daily started on [07/11? ?Pending blood and sputum cultures -duonebs PRN - To wean supplemental O2 as tolerated #Pulmonary nodules #Necrotic pancreatic mass Seen on CT imaging. -not pursuing full treatment at this time. Facility is waiting to hear about decision for hospice Attempted to contact his conservator Dr. Alejo at [phone] x [phone]. However was unsuccessful. Will attempt to reach out again tomorrow to discuss switching patient to hospice and DNR. #Hx seizures Patient takes depakote 500mg BID mixed in pureed food. Has not had any dose since yesterday breakfast. -consider to switching to IV alternative #Hx Cerebral palsy #Failure to thrive -Continue seroquel 100mg HS -continue baclofen 10mg TID -fluoxetine 40mg dialy for aggression -puree diet with medication mixed in Health maintenance: Disposition: IV antibiotics. Awaiting contact with conservator, Dr. Alejo. Diet: Dysphagia 1 Lines: pIVs GI Prophylaxis: None Thrombo Prophylaxis: Enoxaparin Code status: FULL CODE Plan of care discussed with Attending Dr. Mcnair and PGY2 Dr. Kassie Degroot MD PGY 1 Disclaimer: This note was dictated by speech recognition. Minor errors in approver may be present due to voice recognition software. Attending Provider Attestation/Addendum I reviewed labs, imaging, EKG, home medications and prior available records. Face to face evaluation was performed by me. I have personally examined the patient and discussed assessment and plan with the IM team. I reviewed the resident note and agree with the plan with exceptions as below. Acute hypoxic respiratory failure Community-acquired pneumonia, bibasilar Pancreatic cancer with metastases Abdominal lymphadenopathy, likely metastasis from pancreas cancer Goals of care discussion Continue oxygen as needed and wean off as tolerated Continue ceftriaxone/azithromycin Pain management as needed Contacted Dr. Alejo: Patient does not have a family. The group exercise manager in addition to him already decision makers. They wanted to switch the patient to DNR/DNI. Consult compassionate hospice agency
--- NOTE | 2024-07-12 17:46 | PD.RESEVENT ---
Documentation for date of: 07/12/24 Event Note Event Note: At 5:30 PM on 12 Jul [address] Alejo regarding the patient CODE STATUS. He informed that the patient is not conserved and he does not have family members. He mentions that the decision-maker will be him and the electronic assembler group leader. After going through the the patient's findings he informed that he wanted to switch his CODE STATUS to DNR/DNI and to put the patient on hospice. He mentions that the [facility] management prefer the agency compassionate hosp[facility] agency. For that reason we put a referral for hospice and to switch his code from full code to DNR/DNI. - Patient's plan and care discussed with my attending, Dr. Mcnair_ Hetal Fernando MD Internal Medicine PGY-2
[2024-07-12] MEDS: QUEtiapine FUMARATE 100 MG TABLET PO (21:04)
[2024-07-12] MEDS: LABETALOL INJ 5 MG/ML VIAL 20 ML 10 MG IVP (21:50)
[2024-07-13] VITALS (7 sets, daily range): BP systolic 140–158; BP diastolic 75–98; PULSE 65–76; RESP 18–32; TEMP 36–36.8; O2SAT 90–98; BMI 20.4
[2024-07-13] MEDS: BACLOFEN 10 MG TABLET PO ×3 (05:10→21:22)
[2024-07-13 05:12] LABS: Basophils % (Auto) 0 % (0-2.5); Eosinophils # (Auto) 0.1 Thou/mm3 (0.0-0.5); Eosinophils % (Auto) 1 % (0-10); Hematocrit 33.2 % (41.0-53.0); Hemoglobin 10.9 g/dL (13.5-16.0); Immature Granulocytes % (Auto) 0 % (0-0); Immature Granulocytes Auto 0.02 Thou/mm3 (0.00-0.00); Lymphocytes # (Auto) 1.4 Thou/mm3 (1.0-4.8); Lymphocytes % (Auto) 18 % (10-50); Mean Corpuscular HGB Conc 32.8 g/dl (31.0-37.0); Mean Corpuscular Hemoglobin 31.2 pg (25.0-35.0); Mean Corpuscular Volume 95 fL (80-100); Monocytes # (Auto) 0.6 Thou/mm3 (0.0-0.8); Monocytes % (Auto) 8 % (0-12); Neutrophils # (Auto) 5.7 Thou/mm3 (1.8-7.7); Neutrophils % (Auto) 73 % (37-80); Nucleated Red Blood Cell % 0 /100 WBC (0); Platelet Count 166 Thou/mm3 (140-440); RDW Standard Deviation 41.8 fL (35.1-43.9); Red Blood Count 3.49 Miln/mm3 (4.50-5.90); White Blood Count 7.9 Thou/mm3 (3.8-10.6)
[2024-07-13 06:17] LABS: Alanine Aminotransferase 14 U/L (10-49); Albumin, Serum 2.7 gm/dL (3.4-4.8); Albumin/Globulin Ratio 1.1 (1.2-2.2); Alkaline Phosphatase 182 U/L (46-116); Anion Gap 8 (7-16); Aspartate Amino Transferase 22 U/L (0-34); BUN/Creatinine Ratio 33 Ratio (12-20); Bilirubin,Total 0.4 mg/dL (0.3-1.2); Blood Urea Nitrogen 13 mg/dL (9-23); Calcium 8.5 mg/dL (8.3-10.6); Calcium (Corrected) 9.5 mg/dL (8.5-10.1); Chloride 105 mMol/L (98-107); Creatinine (Component) 0.4 mg/dL (0.6-1.3); Globulin 2.5 gm/dL (2.3-3.5); Glucose 98 mg/dL (74-106); Magnesium 1.6 mg/dL (1.6-2.6); Osmolality,Calculated 279 (275-295); Phosphorous 3.2 mg/dL (2.4-5.1); Sodium 140 mMol/L (136-145); Total Protein 5.2 gm/dL (5.7-8.2); eGFR > 60 See Note
[2024-07-13] MEDS: FLUoxetine HCL 10 MG CAPSULE 40 MG PO (08:37)
[2024-07-13] MEDS: ENOXAPARIN SOD INJ 40 MG/0.4 ML SYRINGE SC (08:37)
[2024-07-13] MEDS: DIVALPROEX SOD 125 MG SPRINKLE 500 MG PO ×2 (08:38→21:22)
[2024-07-13] MEDS: AZITHROMYCIN INJ 500 MG in SODIUM CHLORIDE 0.9% 250 ML 250 ML 250 MG IV (08:38)
--- NOTE | 2024-07-13 10:00 | PC.SS ---
Addendum entered by TD Mccurdy 07/13/24 16:58: Transportation ETA to be provided to nursing station in tele. circuit court clerk is aware as unable to get ahold of RN-Ayesha. Addendum entered by TD Mccurdy 07/13/24 16:36: SS update: plan is for [facility]. [facility] transport arranged. Reference number: [id number]. Pending ETA. half-way owner spa director Maxx and hospice rep Luz are aware that the transport time could range from 3-4hrs. Hospice agency to deliver [facility] to [facility] the [facility]. Addendum entered by TD Mccurdy 07/13/24 11:36: SS update: Luz from [facility] confirmed the referral was received and they will work on obtaining consents from Dr. Alejo with [facility]. Luz informs their staff is also available over the weekend if necessary. Original Note: SS follow up: spoke with [facility] owner spa director, Maxx regarding the d/c plan with hospice. She was agreeable and requested referral be sent to [facility]. Toni informs she would like to speak to medical team regarding treated PNA for the patient. Additionally, hospice referral was sent to [facility] via [employer]. Reached out to their agency at to make them aware of referral. program proposals coordinator name is Luz.
--- NOTE | 2024-07-13 14:19 | PD.RESPRO ---
Documentation for date of: 07/13/24 Exam Vital Signs Temp Pulse Resp BP Pulse Ox O2 Del Method O2 Flow Rate 97.7 F 71 29 H 142/98 H 93 L Nasal Cannula 2 07/13/24 12:00 07/13/24 12:00 07/13/24 12:00 07/13/24 12:00 07/13/24 12:00 07/13/24 12:00 07/13/24 12:00 Objective Labs 07/13/24 04:34 07/13/24 04:34 Labs: Laboratory Results - last 24 hr 07/13/24 04:34 WBC 7.9 RBC 3.49 L Hgb 10.9 L Hct 33.2 L MCV 95 MCH 31.2 MCHC 32.8 RDW Std Deviation 41.8 Plt Count 166 Neut % (Auto) 73 Lymph % (Auto) 18 Rich % (Auto) 8 Eos % (Auto) 1 Baso % (Auto) 0 Neut # (Auto) 5.7 Lymph # (Auto) 1.4 Rich # (Auto) 0.6 Eos # (Auto) 0.1 Baso # (Auto) 0.0 Immature Gran # (Auto) 0.02 H Absolute Nucleated RBC 0.00 Immature Gran % 0 Nucleated RBC % 0 Sodium 140 Potassium 4.0 Chloride 105 Carbon Dioxide 27.0 Anion Gap 8 BUN 13 Creatinine 0.4 L Estim Creat Clear Calc Not Performed. eGFR > 60 BUN/Creatinine Ratio 33 H Glucose 98 Calculated Osmolality 279 Calcium 8.5 Corrected Calcium 9.5 Phosphorus 3.2 Magnesium 1.6 Total Bilirubin 0.4 AST 22 ALT 14 Alkaline Phosphatase 182 H D Total Protein 5.2 L Albumin 2.7 L D Globulin 2.5 Albumin/Globulin Ratio 1.1 L ABG Interpretation ABG results: 07/11/24 12:50 ABG pH 7.49 H ABG pCO2 30 L ABG pO2 59 L* ABG HCO3 23 ABG O2 Saturation 92 ABG Base Excess 0 Quality Measures Quality Measures sepsis Possible source: pulmonary Blood cultures ordered: yes Assessment & Plan Assessment Current Active Medications: Generic Name Dose Route Start Last Admin Trade Name Freq PRN Reason Stop Dose Admin Acetaminophen 650 mg 07/13/24 08:10 Acetaminophen Supp 650 Mg Supp MD 08/11/24 10:29 Q4HR PRN Pain 1-3 Or Fever > 101 Azithromycin 500 mg 07/14/24 09:00 Azithromycin 250 Mg Tablet PO 06/06/25 08:59 QDAY SARAH Protocol Baclofen 10 mg 07/12/24 06:00 07/13/24 13:05 Baclofen 10 Mg Tablet PO 08/11/24 05:59 10 mg TID SARAH Administration Divalproex Sodium 500 mg 07/12/24 09:00 07/13/24 08:38 Divalproex Sod 125 Mg Sprinkle PO 08/11/24 08:59 500 mg BID SARAH Administration Enoxaparin Sodium 40 mg 07/12/24 09:00 07/13/24 08:37 Enoxaparin Sod Inj 40 Mg/0.4 Ml Syringe SC 07/26/24 08:59 40 mg QDAY SARAH Administration Fluoxetine HCl 40 mg 07/12/24 09:00 07/13/24 08:37 Fluoxetine Hcl 10 Mg Capsule PO 08/11/24 08:59 40 mg DAILY SARAH Administration Ceftriaxone Sodium/Dextrose 1 gm in 50 mls @ 100 mls/hr 07/12/24 21:00 07/12/24 20:34 Rocephin/D5w 1gm Iv Premix IV 07/19/24 20:59 100 mls/hr QDAY@2100 SARAH Administration Morphine Sulfate 2 mg 07/13/24 08:11 Morphine Sulf Inj 10 Mg/Ml Vial IVP 07/17/24 10:21 Q4HR PRN PAIN 4-10 Ondansetron HCl 4 mg 07/12/24 02:48 Ondansetron Inj 2 Mg/Ml Inj 2 Ml IVP 08/11/24 02:47 Q6H PRN NAUSEA OR VOMITING Protocol Quetiapine Fumarate 100 mg 07/12/24 21:00 07/12/24 21:04 Quetiapine Fumarate 100 Mg Tablet PO 08/11/24 20:59 100 mg HS SARAH Administration Sennosides 1 tab 07/12/24 02:48 Senna Tablet PO 08/11/24 02:47 QDAY PRN constipation Protocol
--- NOTE | 2024-07-13 15:17 | PD.RESDS ---
Planned Discharge Date 07/13/24 DS: Providers Provider Date of admission: 07/12/24 02:48 Primary care physician: Lizzette Antunez DO Admitting Provider: Tommie Paredes MD Attending Provider on Admission: Tommie Paredes MD Consults: 07/12/24 15:08 Referral Wound Care Routine Comment: 07/12/24 17:38 Referral Hospice Urgent Comment[facility] 07/12/24 18:00 Referral Registered Dietitian Routine Comment: Attending Provider on DC: Jorge Mcnair MD Discharging Provider: Osbaldo Degroot MD DS: Diagnosis Problem List Completed Was Problem List Reviewed/Reconciled?: Yes Hospital Course Hospital Course Hospital course: Tramaine Trevino is 73 yr male with PMH of Cerebral palsy, smoker, failure to thrive, mentally delayed, history of seizure presenting to ED from facility due to shortness of breath. Per care provider at bedside, facility noticed change in breathing patterns with pulse ox measuring O2 saturations 86% on room air. Patient to be admitted for management of AHRF 2/2 pneumonia. Patient was treated with ceftriaxone 1 g IV daily and azithromycin 500 Mg p.o. daily from 07/12 - 07/13 after which his condition improved and he was weaned off of supplemental oxygen to room air. Currently saturating between 93/94% on room air. [facility] was sent by our social work department. The correction will now have to liaise with Dr. Alejo regarding completing the paperwork for the process. All patient's labs are now returning to his baseline. Patient is now clinically stable and fit for discharge to correction with hospice. Discharge diagnoses: 1. Acute respiratory failure with hypoxia?resolved 2. Community acquired pneumonia?resolving 3. Necrotic pancreatic mass with pulmonary nodules 4. History of seizures 5. History of cerebral palsy 6. Failure to thrive Discharge plan: ? You have been started on a medication amoxicillin for your pneumonia. Take 1 tablet twice a day for the next 5 days to complete the course. ? Continue the rest of your home medication as before ? Continue hosp[facility] at home with [facility]. ? Recommend follow-up with your primary doctor for repeat chest x-ray in 6 weeks. - Follow up with your primary care physician within 1 week of discharge. If you do not have a primary care physician, please follow up with the [facility] Residents clinic ([phone]) ? If you experience any new, worsening or persistent symptoms either call your hospice doctor. We are grateful to be able to participate in Mr. Trevino's care. We wish him the best. Plan of care discussed with Attending Dr. Tabby Degroot MD PGY 1 Disclaimer: This note was dictated by speech recognition. Minor errors in rn documentation specialist may be present due to voice recognition software. Time Spent with Patient Time attestation: Total time spent providing and/or coordinating discharge services: Time spent: Greater than 30 minutes (42) Exam Vital Signs Temp Pulse Resp BP Pulse Ox O2 Del Method O2 Flow Rate 97.7 F 71 29 H 142/98 H 93 L Nasal Cannula 2 07/13/24 12:00 07/13/24 12:00 07/13/24 12:00 07/13/24 12:00 07/13/24 12:00 07/13/24 12:00 07/13/24 12:00 Narrative Exam General: Elderly male, poor eye contact, does not appear to be in acute distress HEENT: NCAT, No JVD noted. Mucosa moist. Pupils are equal and reactive to light bilaterally Cardiovascular: Normal S1 and S2. Regular rate and rhythm. Respiratory: Lungs are clear to auscultation bilaterally. No wheezing or crackles heard. On room air Abdomen: Soft, nontender, not distended, normal bowel sounds. Skin: Warm to touch, dry, no rashes noted, right posterior foot ulcer Musculoskeletal: No gross injuries. Does not move lower extremities, no pitting edema, right hand contracture. Neuro: unable to assess Discharge Plan Plan Patient Disposition: Home w/HOSPICE Patient condition on transfer: Stable and Benefits outweigh risks Care Plan Goals: ? You have been started on a medication amoxicillin for your pneumonia. Take 1 tablet twice a day for the next 5 days to complete the course. ? Continue the rest of your home medication as before ? Continue hosp[facility] at home with [facility]. ? Recommend follow-up with your primary doctor for repeat chest x-ray in 6 weeks. - Follow up with your primary care physician within 1 week of discharge. If you do not have a primary care physician, please follow up with the [facility] Residents clinic ([phone]) ? If you experience any new, worsening or persistent symptoms either call your hospice doctor. Prescriptions/Referrals Prescriptions/Med Rec: New amoxicillin-pot clavulanate 875-125 mg tablet 1 tab PO BID 5 Days Qty: 10 0RF Continued ascorbic acid (vitamin C) [Vitamin C] 500 mg tablet See Rx Instructions PO DAILY Rx Instructions: 500 mg orally daily; divalproex 500 mg tablet extended release 24 hr 500 mg PO BID fluoxetine 40 mg capsule 40 mg PO DAILY baclofen 10 mg tablet 10 mg PO .COMPLEX Rx Instructions: 10 mg orally tid; cetirizine 10 mg tablet 10 mg PO DAILY quetiapine 100 mg tablet 100 mg PO BID Patient Comments: TAKE 1/2 tab TABLET BY MOUTH EVERY DAY quetiapine 200 mg tablet 200 mg PO HS Patient Comments: TAKE ONE TABLET BY MOUTH EVERY DAY Referrals: Lizzette Antunez DO [Primary Care Provider] - Patient/Caregiver Discharge Instructions Discharge Activity: activity as tolerated Education Materials: Preventing Pneumonia, Treating Pneumonia Print Language: Bruneian Activity Restrictions/Additional Instructions: wash right heel with wound cleanser,pat dry,apply betadine,cover with Allevyn,change daily. Stand Alone Forms: [employer] Award Info., Patient Portal Info Letter Discharge Order Discharge Orders: Discharge (Routine); Ordered 07/13/24 Ordered By: Osbaldo Degroot Quality Discharge Quality Measures VTE prophylaxis MD Attestestation MD Attestation I reviewed labs, imaging, EKG, home medications and prior available records. Face to face evaluation was performed by me. I have personally examined the patient and discussed assessment and plan with the IM team. I reviewed the resident note and agree with the plan with exceptions as below. Acute hypoxic respiratory failure Community-acquired pneumonia, bibasilar Pancreatic cancer with metastases Abdominal lymphadenopathy, likely metastasis from pancreas cancer Goals of care discussion Continue oxygen as needed and wean off as tolerated Will discharge on Augmentin Pain management as needed Contacted Dr. Alejo: Prognosis is poor. Patient does not have a family. The group supervisor yard in addition to him already decision makers. They wanted to switch the patient to DNR/DNI. Consulted [facility]: He will be discharged back to his facility with hospice services Time spent is 40 minutes. More than 50% of the time was spent on patient education and coordination of care.
[2024-07-13] MEDS: cefTRIAXone/D5w 1gm IV premix 1 GM/50 ML BAG IV (21:21)
[2024-07-13] MEDS: QUEtiapine FUMARATE 100 MG TABLET PO (21:22)
--- NOTE | 2024-07-13 22:00 | PC.NURSE ---
Attempts to call multiple times to Maxx Del Toro (guardian) at [phone] but unable to contact.
--- NOTE | 2024-07-13 22:10 | PC.NURSE ---
Got a hold of Maxx Del Toro (guardian), was asked to call her back in 20 minutes.
--- NOTE | 2024-07-13 22:55 | PC.NURSE ---
Still attempts to contact Maxx Del Toro (guardian) but unable to contact. Message left. Maxx is aware that the patient will be discharge at 2300 tonight.
--- NOTE | 2024-07-13 23:00 | PC.NURSE ---
Patient discharged back to [facility] on hospice by [facility] via [facility]. Belongings with patient. Discharge instruction packet with the ambulance attendance. Vitals stable, no signs of pain. Patient stable on discharge.
--- NOTE | 2024-07-13 23:15 | PC.NURSE ---
Spoke to Maxx Del Toro (guardian), discharge instructions provided over the phone. Informed that patient is on his way back to their facility now.
--- NOTE | 2024-07-13 23:15 | PC.NURSE ---
Maxx Del Toro aware that patient has a deep tissue injury to his right heel on discharge. The deep tissue injury was noted on admit to the hospital. Picture was taken and in chart prior to discharge.
[2024-07-18 06:49] LABS: Valporic Acid (Depak)* 59.2 mg/L (50.0-100.0)
== END 2024-07-13 23:00 | disposition hospice, home (50) | DRG 193 ==
LOC: SERX 07-12 00:54 → SERHOLD 07-12 03:42 → S2NX 07-12 04:47
PROVIDERS: Physician Assistant; Student in an Organized Health Care Education/Training Program; Admitting Provider Student in an Organized Health Care Education/Training Program; Emergency Provider Emergency Medicine; PCP Family Medicine; Visit Provider Student in an Organized Health Care Education/Training Program
DX: J18.9 Pneumonia, unspecified organism (principal); J96.01 Acute respiratory failure with hypoxia; C25.9 Malignant neoplasm of pancreas, unspecified; R18.0 Malignant ascites; E87.3 Alkalosis; G40.909 Epilepsy, unspecified, not intractable, without status epilepticus; G80.9 Cerebral palsy, unspecified; K86.9 Disease of pancreas, unspecified; R62.7 Adult failure to thrive; M24.50 Contracture, unspecified joint; Z51.5 Encounter for palliative care; Z66 Do not resuscitate; Z79.899 Other long term (current) drug therapy; Z87.891 Personal history of nicotine dependence
CPT/HCPCS: 36415; 36600; 70450; 71045; 71260; 74177; 80053; 80164; 81001; 82803; 83605; 83615; 83735; 83880; 84100; 84145; 84484; 85025; 85610; 85730; 87040; 87081; 87106; 87186; 87205; 87400; 87811; 93005; 94640; 94762; 96365; 96368; 99285; A4649; A9270; J0456; J0696; J1650; J3490; J7050; Q9967; J1920